=== PATIENT | male | born 1940 | race Caucasian/White ===

== ENCOUNTER 2016-09-16 10:53 | Inpatient (IN) ==
[2016-09-16] MEDS ORDERED: Methocarbamol 500 MG TABLET PO PRN (13:01)
[2016-09-16] MEDS ORDERED: *HR* HYDROcodone/Acet 5/325 mg TABLET PO PRN (13:01)
[2016-09-16] MEDS ORDERED: Ibuprofen 600 MG TABLET PO PRN (15:00)
--- NOTE | 2016-09-16 19:21 | Internal Med History&Physical ---
Date of Encounter: 09/16/16 Time of Encounter: 18:45 Assessment and Plan (1) HTN (hypertension) Current visit: No Status: Chronic Norvasc will be increased and lisinopril/HCTZ will be held because of renal insufficiency. Metoprolol will be continued at present doses. Qualifiers: Hypertension type: essential hypertension Qualified Code(s): I10 - Essential (primary) hypertension (2) Hypokalemia Current visit: No Status: Acute Supplemental potassium will be given and follow-up labs monitored. (3) Chronic renal insufficiency, stage II (mild) Current visit: No Status: Chronic Will hold lisinopril/HCTZ as per above and monitor labs. (4) Peripheral neuropathy Current visit: Yes Status: Chronic We will check B12 and TSH levels in a.m. Hemoglobin A1c was normal during his recent [facility] stay. Qualifiers: Peripheral neuropathy type: polyneuropathy, unspecified Qualified Code(s): G62.9 - Polyneuropathy, unspecified (5) UTI (urinary tract infection) Current visit: No Status: Acute He has been placed on Cipro with UA of 09/13/2016 showing possible UTI with hematuria Qualifiers: Urinary tract infection type: acute cystitis Hematuria presence: with hematuria Qualified Code(s): N30.01 - Acute cystitis with hematuria (6) Anemia Current visit: Yes Status: Acute Suspect multifactorial origin including aspirin use with underlying chronic kidney disease. We will check anemia testing in a.m. Qualifiers: Anemia type: unspecified type Qualified Code(s): D64.9 - Anemia, unspecified Internal Medicine - H&P: HPI Chief complaint: Hypertension, UTI Admitted From: Hospital to Hospital Transfer Plans for Post Hospital Care: Home History of present illness: Mr. Wyatt is a 76 year old male who was hospitalized at [facility] September 13 - September 15 after presenting with uncontrolled hypertension and evidence of UTI. He was treated and stabilized but it was felt he would benefit from swing bed stay for strengthening and balance improvement prior to discharge home. He is admitted to [facility] swing bed for ongoing care needs. Past Med Surg Social Fam HX - Past Medical History Medical history: coronary artery disease, glaucoma, hyperlipidemia, hypertension , kidney stones, myocardial infarction Psychiatric history: no psych history - Past Surgical History Surgical History: angioplasty/stent, cataract, cholecystectomy, herniorrhaphy - Social History Smoking Status: Never smoker Smokeless Tobacco Status: No Alcohol use: none Drug use: none - Family History Mother Adopted: No Family Member Ethnicity: Non- Living Status: Hx Family Cardiac Disorders: No Hx Family Respiratory Disorders: No Hx Family Cancer: Yes (pancratic) Hx Family GI Disorders: No Hx Family Genitourinary Disorders: No Hx Family Endocrine Disorder: No Hx Family Musculoskeletal Disorders: No Hx Family Neuromuscular Disorders: No Hx Family Neurologic Disorders: No Hx Family HEENT Disorders: No Hx Family Autoimmune Disorders: No Hx Family Reproductive Disorders: No Hx Family Psychosocial Disorders: No Hx Family Medical Disorders: No Father Adopted: No Family Member Ethnicity: Non- Living Status: Hx Family Cardiac Disorders: Yes Hx Family Respiratory Disorders: No Hx Family Cancer: No Hx Family GI Disorders: No Hx Family Genitourinary Disorders: No Hx Family Endocrine Disorder: No Hx Family Musculoskeletal Disorders: No Hx Family Neuromuscular Disorders: No Hx Family Neurologic Disorders: No Hx Family HEENT Disorders: No Hx Family Autoimmune Disorders: No Hx Family Reproductive Disorders: No Hx Family Psychosocial Disorders: No Hx Family Medical Disorders: No Internal Medicine - H&P: Meds Amlodipine Besylate 2.5 mg PO DAILY 09/24/15 [History] Gabapentin [Neurontin] 600 mg PO BID 09/24/15 [History] Ibuprofen [Motrin] 600 mg PO TID PRN 09/24/15 [History] Lisinopril/Hydrochlorothiazide [Zestoretic 20-12.5 mg Tablet] 1 tab PO DAILY 01/31 [History] Methocarbamol [Robaxin] 750 mg PO Q4H PRN 09/24/15 [History] Renal Vitamin [Renal Caps Softgel] 1 mg PO DAILY 09/24/15 [History] Rosuvastatin [Crestor] 40 mg PO DAILY 09/24/15 [History] Tamsulosin [Flomax] 0.4 mg PO DAILY #30 capsule 09/24/15 [Rx] Latanoprost [Xalatan] 1 drop RIGHT EYE HS 10/05/15 [History] Aspirin Enteric Coated [Aspirin EC] 325 mg PO DAILY 11/26/15 [History] Ergocalciferol (VITAMIN D2) [Vitamin D] 800 unit PO DAILY 11/26/15 [History] HYDROcodone/Acet 5/325 mg [[place] 5-325 mg] 1 tab PO Q6H PRN #15 tablet 02/27/16 [Rx] HYDROcodone/Acet 5/325 mg [[place] 5-325 mg] 1 tab PO Q6H PRN #20 tab 09/16/16 [Rx ] Metoprolol XL (24 HR) Succ 100 mg PO QDPC 09/16/16 [History] Non-Formulary Medication 09/16/16 [History] Allergies niacin Adverse Reaction (Verified 04/28/16 10:56) Flushing All Systems PM: A 10-system review of systems was performed and is negative for pertinent findings except as documented above in the HPI. Review of systems: Gen.: He states his weight has been stable the past 2 months Cardiovascular: Has history of hypertension but denies KS. He reports 4 stents have been placed previously. His most recent heart catheter was 11/27/2015 at [facility] which showed severe three-vessel CAD. The LMCA showed 25% stenosis. There was 30% in-stent restenosis in the proximal LAD, 80% stenosis in the mid LAD, and 99% stenosis in the distal/apical LAD with diffuse disease. There was 40% stenosis in the proximal circumflex. There was 50% stenosis in the ramus. The RCA showed 30% stenosis proximally, 50% stenosis in the mid, and 15% in- stent restenosis in the mid/distal RCA, 50% stenosis in the distal RCA and 99% stenosis in the right PDA. He was treated medically. An echocardiogram done 03/2016 showed LVEF of 60%. There was mild diastolic dysfunction reported. No significant valvular abnormalities were seen. He denies DVT or pulmonary embolus. Respiratory: He is a lifelong nonsmoker and denies chronic lung disease GI: He reports cholecystectomy. He denies disorders of his liver or exocrine pancreas : He has had frequent urinary tract infections in the past. He denies other kidney bladder or prostate disorders. From review of available archived labs it appears he has chronic kidney disease stage 2-3 Neurologic: He denies large distribution strokes. He states he had a seizure 2005 at the time of his last coronary stent placement. He reports peripheral neuropathy of uncertain etiology primarily involving his feet Endocrine: He has hyperlipidemia but denies diabetes or thyroid disease. Hematology/oncology: Denies blood disorders or internal malignancies. He was unaware he had anemia on labs done at [facility] before discharge Psychiatric: He denies anxiety depression or other mental health issues Musk skeletal: He had a significant fall in 1978 resulting in right arm fracture and face trauma. He denies other bone joint or muscle disorders. - Constitutional Vitals: Temp Pulse Resp BP Pulse Ox 98.7 F 78 20 162/89 96 09/16/16 19:04 09/16/16 19:04 09/16/16 19:04 09/16/16 19:04 09/16/16 19:04 Exam: Gen.: He is well-developed well-nourished male appears in no severe distress at present time. HEENT: Head is atraumatic and normal cephalic. Eyes: EOMI. There is no scleral icterus. Mouth: Mucosa is moist. Neck: Supple and nontender. There is no thyromegaly or adenopathy noted. Heart: Regular without murmurs gallops or ectopics. Lungs: No wheezes or crackles are heard. Abdomen: Soft and nontender. No masses or guarding are noted. Extremities: There is no cyanosis edema or clubbing noted. Dorsalis pedis and posterior tibial pulses are 1-2 over 2 bilaterally. Neurologic: Mental status: He is talkative and a good historian. Cranial nerves : Smile is symmetric. Forehead wrinkles bilaterally. Tongue protrudes midline. EOMI. Motor: There is no pronator drift. Cerebellar: Finger to nose is intact bilaterally. Skin: Warm and dry - VTE Documentation of Mechanical Device: Graduated compression elastic hosiery
[2016-09-16] MEDS: Gabapentin 300 MG CAPSULE PO SCH (20:30)
[2016-09-16] MEDS: Latanoprost 2.5 ML BOTTLE RIGHT EYE SCH (20:31)
[2016-09-17 05:26] LABS: Basophils % 0.6 %; Eosinophils # 0.4 K/mcL (0.0-0.6); Eosinophils % 5.1 %; Hematocrit 39.8 % (37.5-50.1); Hemoglobin 13.3 g/dL (12.9-16.9); Immature Granulocytes % 1.4 % (0-4); Lymphocytes # 2.2 K/mcL (0.6-4.6); Lymphocytes % 29.7 %; Mean Corpuscular HGB Conc 33.4 g/dL (31.6-35.5); Mean Corpuscular Hemoglobin 28.9 pg (28.0-33.3); Mean Corpuscular Volume 86.3 fL (83.0-100.0); Mean Platelet Volume 9.5 fL (9.4-12.4); Monocytes # 0.6 K/mcL (0.0-1.3); Monocytes % 7.6 %; Platelet Count 200 K/mcL (140-400); Red Blood Count 4.61 M/mcL (4.19-5.50); Red Cell Distribution Width 13.5 % (11.5-14.5); Segmented Neutrophils % 55.6 %
[2016-09-17 05:43] LABS: BUN/Creatinine Ratio 21 (6-26); Blood Urea Nitrogen 24 mg/dL (8-26); Calcium 9.3 mg/dL (8.6-10.8); Carbon Dioxide 25 mEq/L (19-29); Chloride 105 mEq/L (98-109); Glucose 108 mg/dL (70-99); Osmolality,Calculated 299 (280-300); Sodium 142 mEq/L (136-145); eGFR For African Americans > 60 (> 60); eGFR For Non-African Americans > 60 (> 60)
[2016-09-17 06:07] LABS: Thyroid Stimulating Hormone 0.88 mcIU/mL (0.350-4.840)
[2016-09-17] MEDS ORDERED: amLODIPine 5 MG TABLET PO SCH (09:00)
[2016-09-17] MEDS ORDERED: hydroCHLOROthiazide 25 MG TABLET PO SCH (09:00)
[2016-09-17] MEDS ORDERED: Lisinopril 20 MG TABLET PO SCH (09:00)
[2016-09-17] MEDS: Metoprolol XL (24 HR) Succ 50 MG TAB.ER.24H PO SCH (09:58)
[2016-09-17] MEDS: Renal Vitamin 1 MG CAPSULE PO SCH (09:59)
[2016-09-17] MEDS: Cyanocobalamin (B-12) 1,000 MCG TABLET PO SCH (09:59)
[2016-09-17] MEDS: Gabapentin 300 MG CAPSULE PO SCH ×2 (09:59→19:38)
[2016-09-17] MEDS: amLODIPine 5 MG TABLET PO SCH (10:00)
--- NOTE | 2016-09-17 12:26 | Internal Med Progress Note ---
Date of Encounter: 09/17/16 Time of Encounter: 12:15 - Assessment and plan (1) HTN (hypertension) Current Visit: No Status: Chronic Assessment and plan: September 17. He reports home systolic blood pressures are 150-220. Will add Cardura. Qualifiers: Hypertension type: essential hypertension Qualified Code(s): I10 - Essential (primary) hypertension (2) Hypokalemia Current Visit: No Status: Acute Assessment and plan: September 17. Resolved. We will discontinue supplemental potassium. Remain off HCTZ. (3) Chronic renal insufficiency, stage II (mild) Current Visit: No Status: Chronic Assessment and plan: September 17. Creatinine has improved to 1.17 with estimated GFR greater than 60. Remain off lisinopril and HCTZ. (4) Peripheral neuropathy Current Visit: Yes Status: Chronic Assessment and plan: September 17. B12 and TSH were normal. Hemoglobin A1c was 5.4% on 09/13/2016. He denies history of alcohol use. Continue gabapentin. Qualifiers: Peripheral neuropathy type: polyneuropathy, unspecified Qualified Code(s): G62.9 - Polyneuropathy, unspecified (5) UTI (urinary tract infection) Current Visit: No Status: Acute Assessment and plan: September 17. Continue Cipro until discharge home. Qualifiers: Urinary tract infection type: acute cystitis Hematuria presence: with hematuria Qualified Code(s): N30.01 - Acute cystitis with hematuria (6) Anemia Current Visit: Yes Status: Acute Assessment and plan: September 17. Hemoglobin normal today at 13.3. Anemia testing was unremarkable. Qualifiers: Anemia type: unspecified type Qualified Code(s): D64.9 - Anemia, unspecified - Subjective Interval history: September 17. He has no new complaints. - Constitutional Vitals: Temp Pulse Resp BP Pulse Ox 97.8 F 74 16 168/72 98 09/17/16 08:56 09/17/16 10:53 09/17/16 10:53 09/17/16 10:53 09/17/16 10:53 Exam: Resting comfortably in bed and appears in no acute distress. He is very talkative. His affect is bright and cheerful. I reviewed his medications and lab results. Internal Medicine: Result - Labs CBC & Chem 7: 09/17/16 04:40 09/17/16 04:40 Labs: Short CBC 09/17/16 Range/Units 04:40 WBC 7.2 (4.3-11.1) K/mcL Hgb 13.3 (12.9-16.9) g/dL Hct 39.8 (37.5-50.1) % Plt Count 200 (140-400) K/mcL Neutrophils # 4.0 (1.6-8.9) K/mcL BMP 09/17/16 04:40 Sodium 142 Potassium 4.0 Chloride 105 Carbon Dioxide 25 BUN 24 Creatinine 1.17 Glucose 108 H Calcium 9.3 - VTE Documentation of Mechanical Device: Graduated compression elastic hosiery Consult Discharge Plan - Plan Referrals: NO,PCP [Primary Care Provider] - 1 week
[2016-09-17] MEDS: Latanoprost 2.5 ML BOTTLE RIGHT EYE SCH (19:39)
[2016-09-18] MEDS: Renal Vitamin 1 MG CAPSULE PO SCH (09:50)
[2016-09-18] MEDS: Aspirin Enteric Coated 325 MG Tablet PO SCH (09:50)
[2016-09-18] MEDS: Metoprolol XL (24 HR) Succ 50 MG TAB.ER.24H PO SCH (09:50)
[2016-09-18] MEDS: Cyanocobalamin (B-12) 1,000 MCG TABLET PO SCH (09:51)
[2016-09-18] MEDS: Gabapentin 300 MG CAPSULE PO SCH ×2 (09:51→20:30)
[2016-09-18] MEDS: amLODIPine 5 MG TABLET PO SCH (09:51)
--- NOTE | 2016-09-18 16:58 | Discharge Summary ---
Date of Encounter: 09/18/16 Time of Encounter: 16:45 - Discharge Diagnosis (1) HTN (hypertension) Priority: Primary Status: Chronic Qualifiers: Hypertension type: essential hypertension Qualified Code(s): I10 - Essential (primary) hypertension (2) Hypokalemia Priority: Secondary Status: Resolved (3) Chronic renal insufficiency, stage II (mild) Priority: Secondary Status: Chronic (4) Peripheral neuropathy Priority: Secondary Status: Chronic Qualifiers: Peripheral neuropathy type: polyneuropathy, unspecified Qualified Code(s): G62.9 - Polyneuropathy, unspecified (5) UTI (urinary tract infection) Priority: Secondary Status: Acute Qualifiers: Urinary tract infection type: acute cystitis Hematuria presence: with hematuria Qualified Code(s): N30.01 - Acute cystitis with hematuria (6) Anemia Priority: Secondary Status: Acute Qualifiers: Anemia type: unspecified type Qualified Code(s): D64.9 - Anemia, unspecified - Discharge Medications Prescriptions: Amlodipine [Norvasc] 5 mg PO DAILY #30 tablet Metoprolol Succinate 200 mg PO DAILY #60 tab.er.24h Home Medications: Gabapentin [Neurontin] 600 mg PO BID 09/24/15 [History] Methocarbamol [Robaxin] 750 mg PO Q4H PRN 09/24/15 [History] Renal Vitamin [Renal Caps Softgel] 1 mg PO DAILY 09/24/15 [History] Rosuvastatin [Crestor] 40 mg PO DAILY 09/24/15 [History] Tamsulosin [Flomax] 0.4 mg PO DAILY #30 capsule 09/24/15 [Rx] Latanoprost [Xalatan] 1 drop RIGHT EYE HS 10/05/15 [History] Aspirin Enteric Coated [Aspirin EC] 325 mg PO DAILY 11/26/15 [History] Ergocalciferol (VITAMIN D2) [Vitamin D] 800 unit PO DAILY 11/26/15 [History] HYDROcodone/Acet 5/325 mg [[place] 5-325 mg] 1 tab PO Q6H PRN #15 tablet 02/27/16 [Rx] HYDROcodone/Acet 5/325 mg [[place] 5-325 mg] 1 tab PO Q6H PRN #20 tab 09/16/16 [Rx ] Non-Formulary Medication 09/16/16 [History] Amlodipine [Norvasc] 5 mg PO DAILY #30 tablet 09/18/16 [Rx] Metoprolol Succinate 200 mg PO DAILY #60 tab.er.24h 09/18/16 [Rx] Allergies/Adverse Reactions: Allergies niacin Adverse Reaction (Verified 04/28/16 10:56) [place] Date of admission: 09/16/16 12:42 Primary care physician: PCP CARLOS Consults: 09/16/16 12:56 Consult to Occupational Therapy [CONS] Routine Comment: weakness Reason for Consult: evaluate, develop and implement plan of care Consult to Physical Therapy [CONS] Routine Comment: weakness Reason for Consult: evaluate, develop and implement plan of care Consult to Wedger [CONS] Routine Reason for SW Consult: discharge planning - Patient Status Disposition: Home, Self-Care Functional capacity at discharge: uses cane/walker Overall status at discharge: patient is progressing back to baseline - Discharge Instructions Follow Up With: [facility] [Non-Partnered Physician] - 1 week - Diet and Activity Activity: as per physical therapy, resume usual activities as tolerated Diet: advance to your usual diet Hospital course: Mr. Wyatt is a 76 year old male who was hospitalized at [facility] September 13 - September 15 after presenting with uncontrolled hypertension and evidence of UTI. He was treated and stabilized but it was felt he would benefit from swing bed stay for strengthening and balance improvement prior to discharge home. He is admitted to [facility] swing bed for ongoing care needs. Initial orders written by the emergency room physician. I saw him on September 16 and performed history and physical. Norvasc dose was increased to 5 mg daily. Lisinopril/HCTZ was discontinued because of renal insufficiency. His blood pressure remained slightly above desirable range so Toprol-XL will be increased to 200 mg daily at discharge. His PCP at the [facility] can further adjust his medications as needed. Supplemental potassium was given and hypokalemia resolved. He will remain off lisinopril/HCTZ as per above which should allow potassium to remain in normal range. Creatinine was improved to 1.17 on September 17 with estimated GFR greater than 60. He was maintained on Cipro during his swing bed stay. He will not continue on antibiotics at discharge. Anemia testing showed no factor deficiency. It was felt he was stable for discharge home on September 19. Will follow with his PCP at [facility] within 1 week. Physical therapy recommended Rollator walker be given for DME needs. - Time Spent with Patient Total time spent providing and/or coordinating discharge services: - Constitutional Vitals: Temp Pulse Resp BP Pulse Ox 97.6 F 80 16 152/77 94 09/18/16 07:26 09/18/16 15:49 09/18/16 15:49 09/18/16 15:49 09/18/16 15:49 - VTE Documentation of Mechanical Device: Graduated compression elastic hosiery
[2016-09-18] MEDS: Latanoprost 2.5 ML BOTTLE RIGHT EYE SCH (20:30)
[2016-09-19 06:38] VITALS: BP 163/97
[2016-09-19] MEDS: Gabapentin 300 MG CAPSULE PO SCH (08:23)
[2016-09-19] MEDS: Renal Vitamin 1 MG CAPSULE PO SCH (08:23)
[2016-09-19] MEDS: Metoprolol XL (24 HR) Succ 50 MG TAB.ER.24H PO SCH (08:23)
[2016-09-19] MEDS: Cyanocobalamin (B-12) 1,000 MCG TABLET PO SCH (08:24)
[2016-09-19] MEDS: amLODIPine 5 MG TABLET PO SCH (08:25)
[2016-09-19] MEDS: Aspirin Enteric Coated 325 MG Tablet PO SCH (08:27)
== END 2016-09-19 11:30 | disposition home or self-care (01) | DRG 945 ==
LOC: INPPIK 12:42
PROVIDERS: ADMIT Internal Medicine; ATTEND Internal Medicine

== ENCOUNTER 2021-04-04 18:19 | Inpatient (IN) ==
[2021-04-05] MEDS: Furosemide 20 MG TABLET PO SCH (17:46)
[2021-04-05] MEDS ORDERED: cloNIDine HCL 0.1 MG TABLET PO PRN (18:41)
[2021-04-05] MEDS ORDERED: *HR* LORazepam 0.5 MG TABLET PO ONE (18:41)
[2021-04-05] MEDS: Ranolazine 500 MG TAB.ER.12H PO SCH (21:01)
[2021-04-06] MEDS: *HR* Enoxaparin 40 MG/0.4 ML SYRINGE SQ SCH (05:47)
[2021-04-06 09:21] LABS: Basophils % 0.3 %; Eosinophils # 0.2 K/mcL (0.0-0.6); Eosinophils % 2.4 %; Hematocrit 37.5 % (37.5-50.1); Hemoglobin 11.2 g/dL (12.9-16.9); Immature Granulocytes % 0.2 % (0-4); Lymphocytes # 1.7 K/mcL (0.6-4.6); Lymphocytes % 19.3 %; Mean Corpuscular HGB Conc 29.9 g/dL (31.6-35.5); Mean Corpuscular Hemoglobin 24.6 pg (28.0-33.3); Mean Corpuscular Volume 82.2 fL (83.0-100.0); Mean Platelet Volume 10.2 fL (9.4-12.4); Monocytes # 0.5 K/mcL (0.0-1.3); Monocytes % 5.6 %; Neutrophils # 6.2 K/mcL (1.6-8.9); Platelet Count 166 K/mcL (140-400); Red Blood Count 4.56 M/mcL (4.19-5.50); Red Cell Distribution Width 14.6 % (11.5-14.5); Segmented Neutrophils % 72.2 %; White Blood Count 8.6 K/mcL (4.3-11.1)
[2021-04-06] MEDS: Aspirin Enteric Coated 81 MG Tablet PO SCH ×2 (09:24→09:33)
[2021-04-06] MEDS: Cholecalciferol (D-3) 1,000 UNIT (25MCG) TABLET PO SCH (09:24)
[2021-04-06] MEDS: Furosemide 20 MG TABLET PO SCH ×2 (09:24→17:01)
[2021-04-06] MEDS: Potassium Citrate 10 MEQ TABLET.ER PO SCH (09:24)
[2021-04-06] MEDS: Isosorbide MONOnitrate (24 HR) 30 MG TAB.ER.24H PO SCH (09:24)
[2021-04-06] MEDS: Ranolazine 500 MG TAB.ER.12H PO SCH ×2 (09:24→20:33)
[2021-04-06] MEDS: *HR* LORazepam 0.5 MG TABLET PO PRN (17:01)
[2021-04-07] MEDS: *HR* Enoxaparin 40 MG/0.4 ML SYRINGE SQ SCH (05:47)
[2021-04-07] MEDS: Potassium Citrate 10 MEQ TABLET.ER PO SCH (08:50)
[2021-04-07] MEDS: Cholecalciferol (D-3) 1,000 UNIT (25MCG) TABLET PO SCH (08:50)
[2021-04-07] MEDS: *HR* LORazepam 0.5 MG TABLET PO PRN (08:50)
[2021-04-07] MEDS: Ranolazine 500 MG TAB.ER.12H PO SCH ×2 (08:50→19:36)
[2021-04-07] MEDS: Isosorbide MONOnitrate (24 HR) 30 MG TAB.ER.24H PO SCH (08:50)
[2021-04-07] MEDS: Aspirin Enteric Coated 81 MG Tablet PO SCH (08:50)
[2021-04-07] MEDS: Furosemide 20 MG TABLET PO SCH ×2 (08:50→17:21)
[2021-04-07 09:49] LABS: Basophils % 0.4 %; Eosinophils # 0.2 K/mcL (0.0-0.6); Eosinophils % 4.1 %; Hematocrit 35.5 % (37.5-50.1); Hemoglobin 10.6 g/dL (12.9-16.9); Immature Granulocytes % 0.2 % (0-4); Lymphocytes # 1.1 K/mcL (0.6-4.6); Lymphocytes % 19.9 %; Mean Corpuscular HGB Conc 29.9 g/dL (31.6-35.5); Mean Corpuscular Hemoglobin 24.4 pg (28.0-33.3); Mean Corpuscular Volume 81.8 fL (83.0-100.0); Monocytes # 0.3 K/mcL (0.0-1.3); Monocytes % 5.9 %; Neutrophils # 3.8 K/mcL (1.6-8.9); Platelet Count 162 K/mcL (140-400); Red Blood Count 4.34 M/mcL (4.19-5.50); Red Cell Distribution Width 14.7 % (11.5-14.5); Segmented Neutrophils % 69.5 %; White Blood Count 5.4 K/mcL (4.3-11.1)
[2021-04-07 10:02] LABS: Calcium 8.9 mg/dL (8.6-10.3); Potassium 3.5 mEq/L (3.5-5.1)
[2021-04-07] MEDS ORDERED: NON-FORMULARY MEDICATION 1 EACH EACH (Alendronate Sodium [Fosamax] 70 MG Tablet) PO SCH (15:04)
[2021-04-08] MEDS: *HR* Enoxaparin 40 MG/0.4 ML SYRINGE SQ SCH (05:47)
[2021-04-08] MEDS: Ranolazine 500 MG TAB.ER.12H PO SCH ×2 (10:37→20:03)
[2021-04-08] MEDS: Aspirin Enteric Coated 81 MG Tablet PO SCH (10:37)
[2021-04-08] MEDS: Cholecalciferol (D-3) 1,000 UNIT (25MCG) TABLET PO SCH (10:38)
[2021-04-08] MEDS: Isosorbide MONOnitrate (24 HR) 30 MG TAB.ER.24H PO SCH (10:38)
[2021-04-08] MEDS: Potassium Citrate 10 MEQ TABLET.ER PO SCH (10:39)
[2021-04-08] MEDS: Furosemide 20 MG TABLET PO SCH (16:17)
[2021-04-09] MEDS: *HR* Enoxaparin 40 MG/0.4 ML SYRINGE SQ SCH (05:34)
[2021-04-09 07:22] LABS: Calcium 8.9 mg/dL (8.6-10.3)
[2021-04-09] MEDS: Aspirin Enteric Coated 81 MG Tablet PO SCH (08:49)
[2021-04-09] MEDS: Isosorbide MONOnitrate (24 HR) 30 MG TAB.ER.24H PO SCH (08:49)
[2021-04-09] MEDS: Furosemide 20 MG TABLET PO SCH ×2 (08:49→18:43)
[2021-04-09] MEDS: Cholecalciferol (D-3) 1,000 UNIT (25MCG) TABLET PO SCH (08:50)
[2021-04-09] MEDS: Potassium Citrate 10 MEQ TABLET.ER PO SCH ×2 (08:50→09:01)
[2021-04-09] MEDS: *HR* LORazepam 0.5 MG TABLET PO PRN (08:50)
[2021-04-09] MEDS: Ranolazine 500 MG TAB.ER.12H PO SCH ×2 (09:00→21:19)
[2021-04-10] MEDS: *HR* Enoxaparin 30 MG/0.3 ML SYRINGE SQ SCH (05:55)
[2021-04-10] MEDS: Aspirin Enteric Coated 81 MG Tablet PO SCH (09:46)
[2021-04-10] MEDS: Potassium Citrate 10 MEQ TABLET.ER PO SCH (09:46)
[2021-04-10] MEDS: *HR* LORazepam 0.5 MG TABLET PO PRN ×2 (09:46→22:22)
[2021-04-10] MEDS: Isosorbide MONOnitrate (24 HR) 30 MG TAB.ER.24H PO SCH (09:46)
[2021-04-10] MEDS: Ranolazine 500 MG TAB.ER.12H PO SCH ×2 (09:46→20:27)
[2021-04-10] MEDS: Furosemide 20 MG TABLET PO SCH ×2 (09:47→17:23)
[2021-04-10] MEDS: Cholecalciferol (D-3) 1,000 UNIT (25MCG) TABLET PO SCH (09:47)
[2021-04-11] MEDS: hydrOXYzine pamoate 25 MG CAPSULE PO PRN (01:28)
[2021-04-11] MEDS: *HR* Enoxaparin 30 MG/0.3 ML SYRINGE SQ SCH (06:12)
[2021-04-11] MEDS: Ranolazine 500 MG TAB.ER.12H PO SCH ×2 (07:48→19:50)
[2021-04-11] MEDS: Cholecalciferol (D-3) 1,000 UNIT (25MCG) TABLET PO SCH (07:48)
[2021-04-11] MEDS: Potassium Citrate 10 MEQ TABLET.ER PO SCH (07:48)
[2021-04-11] MEDS: Furosemide 20 MG TABLET PO SCH ×2 (07:48→17:00)
[2021-04-11] MEDS: Aspirin Enteric Coated 81 MG Tablet PO SCH (07:48)
[2021-04-11] MEDS: Isosorbide MONOnitrate (24 HR) 30 MG TAB.ER.24H PO SCH (07:48)
[2021-04-12] MEDS: *HR* Enoxaparin 30 MG/0.3 ML SYRINGE SQ SCH (05:25)
[2021-04-12] MEDS: Potassium Citrate 10 MEQ TABLET.ER PO SCH (09:39)
[2021-04-12] MEDS: Isosorbide MONOnitrate (24 HR) 30 MG TAB.ER.24H PO SCH (09:39)
[2021-04-12] MEDS: Furosemide 20 MG TABLET PO SCH ×2 (09:40→17:33)
[2021-04-12] MEDS: Cholecalciferol (D-3) 1,000 UNIT (25MCG) TABLET PO SCH (09:40)
[2021-04-12] MEDS: Aspirin Enteric Coated 81 MG Tablet PO SCH (09:40)
[2021-04-12] MEDS: Ranolazine 500 MG TAB.ER.12H PO SCH ×2 (09:40→22:25)
[2021-04-13] MEDS: *HR* Enoxaparin 30 MG/0.3 ML SYRINGE SQ SCH (06:17)
[2021-04-13] MEDS: Cholecalciferol (D-3) 1,000 UNIT (25MCG) TABLET PO SCH (09:35)
[2021-04-13] MEDS: Potassium Citrate 10 MEQ TABLET.ER PO SCH (09:35)
[2021-04-13] MEDS: Aspirin Enteric Coated 81 MG Tablet PO SCH (09:37)
[2021-04-13] MEDS: Ranolazine 500 MG TAB.ER.12H PO SCH ×2 (09:37→20:07)
[2021-04-13] MEDS: Furosemide 20 MG TABLET PO SCH ×2 (09:37→16:36)
[2021-04-13] MEDS: Isosorbide MONOnitrate (24 HR) 30 MG TAB.ER.24H PO SCH (09:38)
[2021-04-14] MEDS: *HR* Enoxaparin 30 MG/0.3 ML SYRINGE SQ SCH (05:16)
[2021-04-14] MEDS: Isosorbide MONOnitrate (24 HR) 30 MG TAB.ER.24H PO SCH (07:54)
[2021-04-14] MEDS: Aspirin Enteric Coated 81 MG Tablet PO SCH (07:54)
[2021-04-14] MEDS: Potassium Citrate 10 MEQ TABLET.ER PO SCH (07:55)
[2021-04-14] MEDS: Ranolazine 500 MG TAB.ER.12H PO SCH ×2 (07:56→22:14)
[2021-04-14] MEDS: Furosemide 20 MG TABLET PO SCH ×2 (07:56→16:22)
[2021-04-14] MEDS: Cholecalciferol (D-3) 1,000 UNIT (25MCG) TABLET PO SCH (08:10)
[2021-04-14 08:19] LABS: Hematocrit 33.1 % (37.5-50.1); Hemoglobin 10.2 g/dL (12.9-16.9); Mean Corpuscular HGB Conc 30.8 g/dL (31.6-35.5); Mean Corpuscular Hemoglobin 25.1 pg (28.0-33.3); Mean Corpuscular Volume 81.3 fL (83.0-100.0); Mean Platelet Volume 10.2 fL (9.4-12.4); Platelet Count 187 K/mcL (140-400); Red Blood Count 4.07 M/mcL (4.19-5.50); Red Cell Distribution Width 15.4 % (11.5-14.5); White Blood Count 6.7 K/mcL (4.3-11.1)
[2021-04-14 08:27] LABS: Calcium 9.4 mg/dL (8.6-10.3); Potassium 4.1 mEq/L (3.5-5.1)
[2021-04-15] MEDS: hydrOXYzine pamoate 25 MG CAPSULE PO PRN (03:34)
[2021-04-15] MEDS: *HR* Enoxaparin 30 MG/0.3 ML SYRINGE SQ SCH (06:05)
[2021-04-15] MEDS: Furosemide 20 MG TABLET PO SCH ×2 (10:01→17:21)
[2021-04-15] MEDS: Isosorbide MONOnitrate (24 HR) 30 MG TAB.ER.24H PO SCH (10:01)
[2021-04-15] MEDS: Aspirin Enteric Coated 81 MG Tablet PO SCH (10:01)
[2021-04-15] MEDS: Cholecalciferol (D-3) 1,000 UNIT (25MCG) TABLET PO SCH (10:01)
[2021-04-15] MEDS: Ranolazine 500 MG TAB.ER.12H PO SCH ×2 (10:02→20:13)
[2021-04-15] MEDS: Potassium Citrate 10 MEQ TABLET.ER PO SCH (10:21)
[2021-04-16] MEDS: *HR* Enoxaparin 30 MG/0.3 ML SYRINGE SQ SCH (05:05)
[2021-04-16 07:56] LABS: Calcium 9.3 mg/dL (8.6-10.3)
[2021-04-16] MEDS: Potassium Citrate 10 MEQ TABLET.ER PO SCH (09:34)
[2021-04-16] MEDS: Furosemide 20 MG TABLET PO SCH ×2 (09:35→16:56)
[2021-04-16] MEDS: Cholecalciferol (D-3) 1,000 UNIT (25MCG) TABLET PO SCH (09:37)
[2021-04-16] MEDS: Aspirin Enteric Coated 81 MG Tablet PO SCH (09:37)
[2021-04-16] MEDS: Ranolazine 500 MG TAB.ER.12H PO SCH ×2 (09:37→21:19)
[2021-04-16] MEDS: Isosorbide MONOnitrate (24 HR) 30 MG TAB.ER.24H PO SCH (12:15)
[2021-04-16 21:14] VITALS: O2SAT 98
[2021-04-16] MEDS: hydrOXYzine pamoate 25 MG CAPSULE PO PRN (21:19)
[2021-04-17] MEDS: *HR* Enoxaparin 30 MG/0.3 ML SYRINGE SQ SCH (06:56)
[2021-04-17 10:00] LABS: Calcium 9.6 mg/dL (8.6-10.3); Potassium 3.8 mEq/L (3.5-5.1)
[2021-04-17 10:39] VITALS: BP 122/70; PULSE 88; RESP 20; TEMP 98.3
[2021-04-17] MEDS: Cholecalciferol (D-3) 1,000 UNIT (25MCG) TABLET PO SCH (10:41)
[2021-04-17] MEDS: Ranolazine 500 MG TAB.ER.12H PO SCH (10:41)
[2021-04-17] MEDS: Aspirin Enteric Coated 81 MG Tablet PO SCH (10:41)
[2021-04-17] MEDS: Isosorbide MONOnitrate (24 HR) 30 MG TAB.ER.24H PO SCH (10:41)
[2021-04-17] MEDS: Potassium Citrate 10 MEQ TABLET.ER PO SCH (10:49)
== END 2021-04-17 15:00 | disposition home health service (06) | DRG 281 ==
LOC: INPPIK 04-05 11:28
PROVIDERS: ADMIT Family Medicine; ATTEND Family Medicine